=== PATIENT | male | born 1975 | race Caucasian/White ===

== ENCOUNTER 2017-07-02 11:58 | Emergency (ER) | payer BC ==
[~2017-07-02] VITALS: Ht 177.8 cm; Wt 86.0 kg
[~2017-07-02 11:58] MED LIST: CIAL10TA PO; CLIN150 PO
[2017-07-02 12:00] VITALS: BP 173/102; PULSE 104; RESP 16; TEMP 98.1; O2SAT 98
[2017-07-02] MEDS ORDERED: PRED20 PO (13:03)
--- NOTE | 2017-07-02 13:04 | PD ---
HPI Chief Complaint: Pain: Acute or Chronic Time Seen by Provider: 12:48 Travel History International Travel<30 days: No Contact w/Intl Traveler<30days: No Traveled to known affect area: No History of Present Illness HPI 42 y/o male with hx of gout. here with non traumatic left foot pain similar to his previous gout. Denies fever or chills. Denies paresthesia or weakness of extremity. Symptom severity moderate. Worse with movement & slightly relieved with rest. PFSH Past Medical History Narrative Medical htn, gout Cardiovascular Problems: Yes (HX HTN) Diminished Hearing: No Hypertension: Yes Tetanus Vaccination: Unknown Past Surgical History Other Surgery: Yes (partial thyroidectomy) Social History Alcohol Use: Yes (Daily) Tobacco Use: No Substance Use: No Allergies-Medications (Allergen,Severity, Reaction): Coded Allergies: No Known Allergies (Unverified Adverse Reaction, Unknown, 07/02/17) Reported Meds & Prescriptions Reported Meds & Active Scripts Active Prednisone 20 Mg Tab 20 Mg PO DIRECTED Day 1- 60mg (3 tablets) Day 2-5 40mg (2 tablets) Review of Systems Except as stated in HPI: all other systems reviewed are Neg General / Constitutional: No: Fever Eyes: No: Visual changes HENT: No: Headaches Cardiovascular: No: Chest Pain or Discomfort Respiratory: No: Shortness of Breath Gastrointestinal: No: Abdominal Pain Genitourinary: No: Dysuria Physical Exam Narrative GENERAL: alert male well appearing. SKIN: Warm and dry. HEAD: Normocephalic. EYES: No injection or drainage. NECK: Supple, trachea midline. MUSCULOSKELETAL: No cyanosis, or edema. Left foot acutely tender with mild swelling& warmth. No deformity. 2+ DP pulse. brisk cap refill Data Data Last Documented VS Vital Signs Date Time Temp Pulse Resp B/P (MAP) Pulse Ox O2 Delivery O2 Flow Rate FiO2 07/02/17 12:00 98.1 104 16 173/102 (125) 98 MDM Medical Decision Making Medical Screen Exam Complete: Yes Emergency Medical Condition: Yes Differential Diagnosis GOUT, arthritis, strain Narrative Course 42 y/o male with hx of gout. here with non traumatic left foot pain similar to his previous gout. The extremity is neurovascularly intact. No sign of infection. Diagnosis Primary Impression: Gout Qualified Codes: M10.9 - Gout, unspecified Referrals: Primary Care Physician Scripts Prednisone (Prednisone) 20 Mg Tab 20 MG PO DIRECTED for Inflammation, #12 TAB 0 Refills Day 1- 60mg (3 tablets) Day 2-5 40mg (2 tablets) Prov: Shefali Hess 07/02/17 Disposition: 01 DISCHARGE HOME Condition: Stable Shefali Hess Jul 02, 2017 13:04
== END 2017-07-02 13:11 | disposition home or self-care (01) ==
LOC: PHEFT 11:58
DX: M10.9 Gout, unspecified (principal); I10 Essential (primary) hypertension
CPT/HCPCS: 99283